=== PATIENT | female | born 1980 | race Caucasian/White ===

== ENCOUNTER 2016-11-01 05:47 | Inpatient (IN) | payer BC, MEDICAID ==
[2016-11-01] VITALS (16 sets, daily range): BP systolic 100–130; RESP 14–19; TEMP 97.1–98.7; Ht 165.1 cm; Wt 80.7 kg
[~2016-11-01] VITALS: Ht 165.1 cm; Wt 80.7 kg
[2016-11-01] MEDS ORDERED: GENTAMICIN 400 MG in SODIUM CHLORIDE 0.9% 100 ML IV ONE (06:35)
[2016-11-01] MEDS ORDERED: METOCLOPRAMIDE 10 MG/2 ML VIAL IV PUSH ONE ×2 (06:35→08:00)
[2016-11-01] MEDS ORDERED: CLINDAMYCIN 900 MG in DEXTROSE 5% 50 ML IV ONE (06:35)
[2016-11-01] MEDS ORDERED: FAMOTIDINE 20 MG INJ IV ONE ×2 (06:35→08:00)
[2016-11-01] MEDS: LACT RINGERS 1,000 ML IV SCH ×2 (07:14→18:33)
[2016-11-01] MEDS ORDERED: LIDOCAINE 1% BUFFERED 1 ML SYR INTRADERM PRN (08:00)
[2016-11-01] MEDS ORDERED: LACT RINGERS 1,000 ML IV SCH ×2 (08:00→09:20)
[2016-11-01] MEDS ORDERED: PROMETHAZINE 25 MG/ML VIAL IV PRN (09:00)
[2016-11-01] MEDS ORDERED: SALINE FLUSH 10 ML FLUSH PRN ×2 (09:00→09:20)
[2016-11-01] MEDS ORDERED: MORPHINE 4 MG/ML SYR IV PRN ×2 (09:00)
[2016-11-01] MEDS ORDERED: MORPHINE 2 MG/ML SYR IV PRN ×2 (09:00)
[2016-11-01] MEDS ORDERED: MEPERIDINE 25 MG/ML IV PRN (09:00)
[2016-11-01] MEDS ORDERED: ONDANSETRON 4 MG VIAL IV PRN ×3 (09:00→09:20)
[2016-11-01] MEDS ORDERED: BUTORPHANOL 2 MG/ML VIAL IV PRN (09:00)
[2016-11-01] MEDS ORDERED: DIPHENHYDRAMINE 50 MG/ML VIAL IV PRN (09:00)
[2016-11-01] MEDS ORDERED: OXYCODONE 5 MG TAB PO PRN (09:00)
[2016-11-01] MEDS ORDERED: NALOXONE 0.4 MG/ML AMP IV PRN (09:00)
[2016-11-01] MEDS ORDERED: DILAUDID 1 MG/ML AMP IV PRN (09:00)
[2016-11-01] MEDS ORDERED: MAG HYDROX 30 ML UDC PO PRN (09:20)
[2016-11-01] MEDS ORDERED: TDaP 0.5 ML VIAL IM.VACC ONE (09:20)
[2016-11-01] MEDS ORDERED: OXYTOCIN 15 UNITS/250 ML NS 250 ML IV SCH (09:20)
[2016-11-01] MEDS ORDERED: MEASLES,MUMPS,RUBELLA VAC SUBQ.VACC ONE (09:20)
[2016-11-01] MEDS ORDERED: PHENYLEPHRINE 10 MG/ML VIAL IV ONE (09:52)
[2016-11-01] MEDS ORDERED: OXYTOCIN 10 UNITS/ML VIAL IV ONE (09:53)
[2016-11-01] MEDS: KETOROLAC 30 MG/ML VIAL IV SCH ×2 (11:55→18:32)
[2016-11-01] MEDS ORDERED: SALINE FLUSH 10 ML FLUSH SCH (20:00)
[2016-11-02 02:46] VITALS: BP_SYST 132; RESP 20; TEMP 98.4
[2016-11-02 05:40] VITALS: BP_SYST 118; RESP 18; TEMP 98.4
[2016-11-02] MEDS: KETOROLAC 30 MG/ML VIAL IV SCH ×2 (05:47)
[2016-11-02] MEDS ORDERED: SODIUM CHLORIDE 0.9% FLUSH BAG 500 ML IV SCH (06:00)
[2016-11-02] MEDS: DOCUSATE SOD 100 MG CAP PO SCH (08:24)
[2016-11-02 08:54] VITALS: BP_SYST 120; RESP 16; TEMP 98.1
[2016-11-02] MEDS: OXYCODONE/APAP 5/325 TAB PO PRN ×3 (09:36→20:52)
[2016-11-02] MEDS: Ibuprofen 600 MG TAB PO PRN ×3 (09:36→20:52)
[2016-11-02 18:15] VITALS: BP_SYST 112; RESP 18; TEMP 97.7
[2016-11-03] MEDS: Ibuprofen 600 MG TAB PO PRN ×3 (02:55→13:54)
[2016-11-03] MEDS: OXYCODONE/APAP 5/325 TAB PO PRN ×3 (02:56→12:35)
[2016-11-03 06:06] VITALS: BP_SYST 126; RESP 16; TEMP 97.9
[2016-11-03] MEDS: DOCUSATE SOD 100 MG CAP PO SCH (08:34)
[2016-11-03 10:05] VITALS: BP_SYST 127; TEMP 97.8
[2016-11-03 13:15] VITALS: BP_SYST 127; RESP 16; TEMP 97.8
== END 2016-11-03 14:29 | disposition home or self-care (01) | DRG 766 ==
LOC: LDOP 05:47 → LD 06:40 → OB 11:25
PROVIDERS: ADMIT Obstetrics & Gynecology; ATTEND Obstetrics & Gynecology
PROC: 10D00Z1 Extraction of Products of Conception, Low, Open Approach (ICD-10-PCS; principal; 2016-11-01)
DX: O99.344 Other mental disorders complicating childbirth (principal); D25.9 Leiomyoma of uterus, unspecified; O34.219 Maternal care for unspecified type scar from previous cesarean delivery; N85.8 Other specified noninflammatory disorders of uterus; O34.13 Maternal care for benign tumor of corpus uteri, third trimester; F41.9 Anxiety disorder, unspecified; Z3A.38 38 weeks gestation of pregnancy; Z37.0 Single live birth
CPT/HCPCS: 59025; 82803; 84112; 85025